=== PATIENT | female | born 1955 | race Caucasian/White ===

== ENCOUNTER 2019-06-10 08:58 | Day surgery (SDC) | payer MEDICARE ==
[~2019-06-10 08:58] MED LIST: Dextrose 5%-0.45% NaCl 1,000 ML IV SCH; Midazolam 1 MG/ML 2 ML SDV ONE; fentaNYL 100 MCG/2 ML SDV ONE
[2019-06-10] MEDS ORDERED: fentaNYL 100 MCG/2 ML SDV IV ONE ×3 (08:59→10:06)
[2019-06-10] MEDS ORDERED: Midazolam 1 MG/ML 2 ML SDV IV ONE ×3 (08:59→10:02)
--- NOTE | 2019-06-10 17:30 | OR ---
DATE: 06/10/2019 PREOPERATIVE DIAGNOSIS: Screening colonoscopy. POSTOPERATIVE DIAGNOSIS: Screening colonoscopy. PROCEDURE: Total colonoscopy. ANESTHESIA: Conscious sedation with IV Versed and fentanyl. SPECIMEN: None. OPERATIVE FINDINGS: Normal colonoscopy. RECOMMENDATION: Followup screening colonoscopy for polyps in 10 years. INDICATION FOR PROCEDURE: This 63-year-old female presents for screening colonoscopy. PROCEDURE IN DETAIL: After adequate preparation, a colonoscope was inserted into the rectum. This was easily passed all the way to the cecum. Confirmation of the cecum was made by visualization of the ileocecal valve and palpation in the right lower quadrant. There was quite a bit of liquid material still present in the colon, but this was mostly able to be suctioned clear to give an adequate exam. The patient has no polyps, masses, bleeding sites, or diverticula. Anal and rectal examinations are also normal. Air was suctioned from the colon and the scope removed. [facility] /[id number]
== END 2019-06-10 12:11 | disposition home or self-care (01) ==
LOC: DL.ENDO 08:58
PROVIDERS: ATTEND Surgery
DX: Z12.11 Encounter for screening for malignant neoplasm of colon (principal); Z88.0 Allergy status to penicillin; Z79.899 Other long term (current) drug therapy; Z85.72 Personal history of non-Hodgkin lymphomas
CPT/HCPCS: G0121; J2250; J3010; J7042

== ENCOUNTER 2021-09-18 09:08 | Inpatient (IN) | payer MEDICARE ==
[2021-09-18] MEDS: Sodium Chloride 0.9% 10 ML Syringe FLUSH PRN ×2 (09:27→15:29)
[2021-09-18] MEDS ORDERED: Albuterol/Ipratropium 3.0-0.5 MG/3 ML Neb Soln ONE (09:32)
--- NOTE | 2021-09-18 09:43 | EDM.PDOC ---
ED HPI GENERAL MEDICAL PROBLEM - General Chief Complaint: Chest Pain Stated Complaint: TROUBLE BREATHING / TASTE SMELL OK Time Seen by Provider: 09/18/21 09:30 Source of Information: Reports: Patient History Limitations: Reports: No Limitations - History of Present Illness INITIAL COMMENTS - FREE TEXT/NARRATIVE: 65 y/o F c/o sob cough, chest pressure, fever, and sweating since yesterday. Pt states her symptoms came on gradually and she has felt increasingly sob as the days have gone on. Hx of asthma and has used her inhaler yesterday with no relief. Has been taking OTC cough medicine with no relief. Has not had a productive cough. The chest pressure is center chest non radiating. No NVD. Denies thompson, vision prob, abd pn, pelvic pn, ext pain, drugs, etoh. Is a smoker. Previous NM ten plus years ago of the RCA. - Related Data Allergies Allergy/AdvReac Type Severity Reaction Status Date / Time Penicillins AdvReac Cannot Verified 09/18/21 09:13 Remember Home Meds: Home Meds Amitriptyline [Elavil] 10 mg PO BEDTIME PRN 04/28/19 [History] FLUoxetine [PROzac] 10 mg PO DAILY 04/28/19 [History] Losartan/Hydrochlorothiazide [Losartan-HCTZ 50-12.5 MG] 1 each PO DAILY 04/28/19 [History] Metoprolol Succinate [Toprol XL] 25 mg PO DAILY 04/28/19 [History] Cefpodoxime [Vantin] 200 mg PO BID #6 tablet 04/30/19 [Rx] Multivitamin [Multivitamins] 1 each PO DAILY 06/10/19 [History] atorvaSTATin [Lipitor] 10 mg PO BEDTIME 06/10/19 [History] Past Medical History - Past Health History Medical/Surgical History: Denies Medical/Surgical History HEENT History: Reports: Impaired Vision Cardiovascular History: Reports: Hypertension, Stents Other Cardiovascular History: STENT X4 Respiratory History: Reports: Other (See Below) Other Respiratory History: LYMPHOMA IN LUNG, RADIATION DONE FOR LUNG Gastrointestinal History: Reports: Colon Polyp, Other (See Below) Other Gastrointestinal History: HX OF LYMPHOMA IN STOMACH Genitourinary History: Reports: None 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: Musculoskeletal History: Reports: Arthritis Neurological History: Reports: None Psychiatric History: Reports: Depression Endocrine/Metabolic History: Reports: Obesity/BMI 30+ Hematologic History: Reports: None Immunologic History: Reports: None Oncologic (Cancer) History: Reports: Lymphoma Dermatologic History: Reports: Psoriasis - Infectious Disease History Infectious Disease History: Reports: Chicken Pox, Measles - Past Surgical History HEENT Surgical History: Reports: None Cardiovascular Surgical History: Reports: Other (See Below) Other Cardiovascular Surgeries/Procedures: stents GI Surgical History: Reports: Colonoscopy, Polypectomy Female Surgical History: Reports: None Endocrine Surgical History: Reports: None Musculoskeletal Surgical History: Reports: None Social & Family History - Family History Family Medical History: No Pertinent Family History - Tobacco Use Tobacco Use Status *Q: Current Every Day Tobacco User Years of Tobacco use: 50 Packs/Tins Daily: 0.3 Used Tobacco, but Quit: No Second Hand Smoke Exposure: No - Caffeine Use Caffeine Use: Reports: Coffee - Recreational Drug Use Recreational Drug Use: No ED ROS GENERAL - Review of Systems Review Of Systems: Comprehensive ROS is negative, except as noted in HPI. ED EXAM, GENERAL - Physical Exam Exam: See Below Exam Limited By: No Limitations General Appearance: Alert, Mild Distress Eye Exam: Bilateral Eye: PERRL Ears: Normal External Exam, Normal Canal, Hearing Grossly Normal, Normal TMs Nose: Normal Inspection, Normal Mucosa, No Blood Throat/Mouth: Normal Inspection, Normal Lips, Normal Teeth, Normal Gums, Normal Oropharynx, Normal Voice, No Airway Compromise Head: Atraumatic, Normocephalic Neck: Supple, Non-Tender Respiratory/Chest: Respiratory Distress, Other (diminished throughout with wheezes throughout) Cardiovascular: Normal Peripheral Pulses, Regular Rate, Rhythm, No Edema, No Gallop, No JVD, No Murmur, No Rub Peripheral Pulses: 2+: Radial (L), Radial (R) GI/Abdominal: Soft, Non-Tender (Female) Exam: Deferred Rectal (Female) Exam: Deferred Back Exam: Normal Inspection, Full Range of Motion Extremities: Normal Inspection, Normal Range of Motion, Non-Tender, Normal Capillary Refill, No Pedal Edema Neurological: Alert, Oriented, CN II-XII Intact, Normal Cognition, Normal Gait, Normal Reflexes, No Motor/Sensory Deficits Psychiatric: Normal Affect, Normal Mood Skin Exam: Warm, Dry, Intact #1 Interpretation EKG Date: 09/18/21 Time: 09:19 Rhythm: Other (sinus) [place]: Normal P-Wave: Present QRS: Normal ST-T: Normal QT: Normal EKG Interpretation Comments: Q waves inferior leads. Unchanged from previous EKG 2019 Course - Vital Signs Last Recorded V/S: Last Vital Signs Temp 98.2 F 09/18/21 09:24 Pulse 78 09/18/21 09:24 Resp 20 09/18/21 09:24 BP 151/103 H 09/18/21 09:24 Pulse Ox 89 L 09/18/21 09:24 - Orders/Labs/Meds Orders: Active Orders 24 hr Category Date Time Status Peripheral IV Care [RC] . DIRECTED Care 09/18/21 09:20 Active RT Aerosol Therapy [RC] ASDIRECTED Care 09/18/21 09:45 Active RT Aerosol Therapy [RC] ASDIRECTED Care 09/18/21 12:23 Active Sodium Chloride 0.9% [Saline Flush] Med 09/18/21 09:19 Active 10 ml FLUSH ASDIRECTED PRN Peripheral IV Insertion Adult [OM.PC] Routine Oth 09/18/21 09:19 Ordered Medication Orders Sodium Chloride (Sodium Chloride 0.9% 10 Ml Syringe) 10 ml FLUSH ASDIRECTED PRN PRN Reason: Keep Vein Open Last Admin: 09/18/21 09:27 Dose: 10 ml Documented by: ASPEN Labs: Laboratory Tests 09/18/21 09/18/21 09/18/21 Range/Units 09:20 09:25 10:05 WBC 7.4 (5.0-10.0) 10^3/uL RBC 4.66 (4.2-5.4) 10^6/uL Hgb 14.0 (12.0-16.0) g/dL Hct 42.0 (37.0-47.0) % MCV 90.1 (80-100) fL MCH 30.0 (27.0-34.0) pg MCHC 33.3 (33.0-35.0) g/dL Plt Count 331 (150-450) 10^3/uL Neut % (Auto) 63.6 (42.2-75.2) % Lymph % (Auto) 20.8 (20.5-50.1) % [place] % (Auto) 11.7 H (2-8) % Eos % (Auto) 3.1 H (1.0-3.0) % Baso % (Auto) 0.8 (0.0-1.0) % Sodium 142 (136-145) mmol/L Potassium 3.7 (3.5-5.1) mmol/L Chloride 103 (98-107) mmol/L Carbon Dioxide 29 (21-32) mmol/L Anion Gap 13.7 H (7-13) mEq/L BUN 14 (7-18) mg/dL Creatinine 0.74 (0.55-1.02) mg/dL Est Cr Clr Drug Dosing 61.02 mL/min Estimated GFR (MDRD) > 60 BUN/Creatinine Ratio 18.9 (No establ ref range) Glucose 157 H (70-99) mg/dL Calcium 8.8 (8.5-10.1) mg/dL Magnesium 2.1 (1.8-2.4) mg/dL Total Bilirubin 0.4 (0.2-1.0) mg/dL AST 31 (15-37) U/L ALT 40 (14-59) U/L Alkaline Phosphatase 143 H (46-116) U/L Troponin I High Sens 14 (<=51) pg/mL C-Reactive Protein < 0.2 (0.0-0.9) mg/dL B-Natriuretic Peptide 64 (0-100) pg/ml Total Protein 7.3 (6.4-8.2) g/dL Albumin 3.7 (3.4-5.0) g/dL Globulin 3.6 Albumin/Globulin Ratio 1.0 Influenza Type A RNA Negative (NEGATIVE) Influenza Type B RNA Negative (NEGATIVE) SARS-CoV-2 RNA ([place]) Negative (NEGATIVE) Meds: Medications Generic Name Dose Route Start Last Admin Trade Name Freq PRN Reason Stop Dose Admin Sodium Chloride 10 ml 09/18/21 09:19 09/18/21 09:27 Sodium Chloride 0.9% 10 Ml Syringe FLUSH 10 ml ASDIRECTED PRN Administration Keep Vein Open Discontinued Medications Generic Name Dose Route Start Last Admin Trade Name Freq PRN Reason Stop Dose Admin Albuterol 10 mg 09/18/21 09:44 09/18/21 09:55 Albuterol 0.083% 2.5 Mg/3 Ml Neb Soln NEB 09/18/21 09:45 10 mg ONETIME ONE Administration Albuterol Confirm 09/18/21 09:47 09/18/21 10:48 Albuterol 0.083% 2.5 Mg/3 Ml Neb Soln Administered 09/18/21 09:48 Not Given Dose 10 mg .ROUTE .STK-MED ONE Albuterol 10 mg 09/18/21 12:23 Albuterol 0.083% 2.5 Mg/3 Ml Neb Soln NEB 09/18/21 12:24 ONETIME ONE Albuterol/Ipratropium Confirm 09/18/21 09:32 09/18/21 09:36 Albuterol/Ipratropium 3.0-0.5 Mg/3 Ml Neb Soln Administered 09/18/21 09:33 6 ml Dose Administration 6 ml .ROUTE .STK-MED ONE Magnesium Sulfate 2 gm/ Premix 50 mls @ 25 mls/hr 09/18/21 10:14 09/18/21 10:21 IV 09/18/21 12:13 25 mls/hr ONETIME ONE Administration Methylprednisolone Sodium Succinate 125 mg 09/18/21 10:21 09/18/21 10:25 Methylprednisolone Sodium Succinate 125 Mg/2 Ml Sdv IVPUSH 09/18/21 10:22 125 mg ONETIME ONE Administration - Re-Assessments/Exams Free Text/Narrative Re-Assessment/Exam: 09/18/21 12:26 The pts o2 sats went down to 84% on RA with ambulation. All other results are negative but pts remains wheezy with decreased breath sounds. She is not normally on oxygen and was very winded after walking. I spoke with Dr. Spicer who agreed to admit the pt for inpatient treatment of her asthma exacerbation. Departure - Departure Time of Disposition: 12:29 (Dr. Spicer) Disposition: Admitted As Inpatient 64 Condition: Fair Clinical Impression: Asthma exacerbation Qualifiers: Asthma severity: moderate Asthma persistence: persistent Qualified Code(s): J45.41 - Moderate persistent asthma with (acute) exacerbation Forms: ED Department Discharge Sepsis Event Note (ED) - Evaluation Sepsis Screening Result: No Definite Risk - Focused Exam Vital Signs: Vital Signs Temp Pulse Resp BP Pulse Ox 09/18/21 09:24 98.2 F 78 20 151/103 H 89 L - My Orders Last 24 Hours: My Active Orders 09/18/21 09:19 Sodium Chloride 0.9% [Saline Flush] 10 ml FLUSH ASDIRECTED PRN Peripheral IV Insertion Adult [OM.PC] Routine 09/18/21 09:20 Peripheral IV Care [RC] . DIRECTED 09/18/21 09:45 RT Aerosol Therapy [RC] ASDIRECTED 09/18/21 12:23 RT Aerosol Therapy [RC] ASDIRECTED - Assessment/Plan Last 24 Hours: My Active Orders 09/18/21 09:19 Sodium Chloride 0.9% [Saline Flush] 10 ml FLUSH ASDIRECTED PRN Peripheral IV Insertion Adult [OM.PC] Routine 09/18/21 09:20 Peripheral IV Care [RC] . DIRECTED 09/18/21 09:45 RT Aerosol Therapy [RC] ASDIRECTED 09/18/21 12:23 RT Aerosol Therapy [RC] ASDIRECTED
[2021-09-18] MEDS ORDERED: Albuterol 0.083% 2.5 MG/3 ML Neb Soln NEB ONE ×2 (09:44→12:23)
[2021-09-18] MEDS ORDERED: Albuterol 0.083% 2.5 MG/3 ML Neb Soln ONE ×2 (09:47→12:26)
[2021-09-18 10:04] LABS: ANION GAP 13.7 mEq/L (7-13); CHLORIDE,CL 103 mmol/L (98-107); SODIUM,NA 142 mmol/L (136-145)
--- NOTE | 2021-09-18 10:04 | CR ---
PROCEDURE INFORMATION: Exam: XR Chest Exam date and time: 09/18/2021 9:32 AM Age: 65 years old Clinical indication: Cough and shortness of breath; Additional info: Cp, SOB, cough TECHNIQUE: Imaging protocol: XR of the chest. Views: 1 view. COMPARISON: CR Chest 2V 02/18/2021 10:36 AM FINDINGS: Tubes, catheters and devices: Port-A-Cath left chest wall with tip in the superior vena cava. Lungs: Unremarkable. No consolidation. Pleural spaces: Unremarkable. No pleural effusion. No pneumothorax. Heart/Mediastinum: Unremarkable. No cardiomegaly. Bones/joints: Advanced degenerative changes left glenohumeral joint. IMPRESSION: No acute cardiopulmonary findings.
[2021-09-18] MEDS ORDERED: Magnesium Sulfate/Water 2 GM in Premix Bag 1 BAG IV ONE (10:14)
[2021-09-18] MEDS ORDERED: methylPREDNISolone Sodium Succinate 125 MG/2 ML SDV IVPUSH ONE (10:21)
[2021-09-18 10:37] LABS: CORONAVIRUS COVID-19 NAA NEGATIVE (NEGATIVE)
[2021-09-18] MEDS ORDERED: 50% Dextrose in Water 50 ML Syringe IVPUSH PRN (14:23)
[2021-09-18] MEDS ORDERED: Albuterol/Ipratropium 3.0-0.5 MG/3 ML Neb Soln NEB PRN (14:24)
[2021-09-18] MEDS ORDERED: oxyCODONE 5 MG Tab PO PRN (14:47)
[2021-09-18] MEDS ORDERED: Docusate Sodium 100 MG Cap PO PRN (14:47)
[2021-09-18] MEDS ORDERED: Ondansetron 4 MG Tab.DIS PO PRN (14:47)
[2021-09-18] MEDS ORDERED: Acetaminophen 325 MG Tab PO PRN (14:47)
--- NOTE | 2021-09-18 14:52 | PCM.HP ---
H&P History of Present Illness - General Date of Service: 09/18/21 Admit Problem/Dx: Admission Diagnosis/Problem Admission Diagnosis/Problem Asthma with acute exacerbation Source of Information: Patient, Provider - History of Present Illness Initial Comments - Free Text/Narative: h/o cad, copd Presented with cough, subjective fever, no associated sputum. Symptoms started 2 days ago Has been progressively worse. Associated with sob. No improvement with inhalers and OTC cough meds No apparent sick exposure In er noted to have hypoxemia, wheezing Was treated with IV solumedrol, nebs - Related Data Allergies/Adverse Reactions: Allergies Allergy/AdvReac Type Severity Reaction Status Date / Time Penicillins AdvReac Cannot Verified 09/18/21 13:23 Remember Home Medications: Home Meds RX: Amitriptyline [Elavil] 10 mg PO BEDTIME PRN 04/28/19 [History] RX: Losartan/Hydrochlorothiazide [Losartan-HCTZ 50-12.5 MG] 1 each PO DAILY 04/28/19 [History] RX: Metoprolol Succinate [Toprol XL] 25 mg PO DAILY 04/28/19 [History] Multivitamin [Multivitamins] 1 each PO DAILY 06/10/19 [History] atorvaSTATin [Lipitor] 10 mg PO BEDTIME 06/10/19 [History] RX: Escitalopram Oxalate 20 mg PO BEDTIME 09/18/21 [History] metFORMIN [Glucophage XR] 250 mg PO BEDTIME 09/18/21 [History] Past Medical History - Past Health History Medical/Surgical History: Denies Medical/Surgical History HEENT History: Reports: Impaired Vision Cardiovascular History: Reports: Hypertension, Stents Other Cardiovascular History: STENT X4 20yrs ago. 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 Hematologic History: Reports: None Immunologic History: Reports: None Oncologic (Cancer) History: Reports: Lymphoma Dermatologic History: Reports: Psoriasis - Infectious Disease History Infectious Disease History: Reports: Chicken Pox - Past Surgical History HEENT Surgical History: Reports: None Cardiovascular Surgical History: Reports: Other (See Below) Other Cardiovascular Surgeries/Procedures: stents GI Surgical History: Reports: Colonoscopy, Polypectomy Female Surgical History: Reports: None Endocrine Surgical History: Reports: None Musculoskeletal Surgical History: Reports: None Social & Family History - Family History Family Medical History: No Pertinent Family History - Tobacco Use Tobacco Use Status *Q: Current Every Day Tobacco User Years of Tobacco use: 50 Packs/Tins Daily: 0.3 Used Tobacco, but Quit: No Second Hand Smoke Exposure: No - Caffeine Use Caffeine Use: Reports: Coffee - Recreational Drug Use Recreational Drug Use: No H&P Review of Systems - Review of Systems: Review Of Systems: See Below General: Reports: Fever (subjective), Chills, Malaise Pulmonary: Reports: Shortness of Breath, Cough, Sputum (minimal) Gastrointestinal: Denies: Abdominal Pain, Nausea Genitourinary: Denies: Dysuria Psychiatric: Denies: Confusion Neurological: Denies: Syncope Exam - Exam Exam: See Below - Vital Signs Vital Signs: Last Vital Signs Temp 98.2 F 09/18/21 09:24 Pulse 78 09/18/21 09:24 Resp 20 09/18/21 09:24 BP 151/103 H 09/18/21 09:24 Pulse Ox 89 L 09/18/21 09:24 Weight: 165 lb - Exam Quality Assessment: Supplemental Oxygen General: Alert, Oriented Neck: Supple Lungs: Normal Respiratory Effort, Decreased Breath Sounds, Wheezing Cardiovascular: Regular Rate, Regular Rhythm GI/Abdominal Exam: Normal Bowel Sounds, Soft, Non-Tender Extremities: No Pedal Edema Neuro Extensive - Mental Status: Alert, Oriented x3 - Patient Data Lab Results Last 24 hrs: Laboratory Results - last 24 hr 09/18/21 09/18/21 09/18/21 Range/Units 09:20 09:25 10:05 WBC 7.4 (5.0-10.0) 10^3/uL RBC 4.66 (4.2-5.4) 10^6/uL Hgb 14.0 (12.0-16.0) g/dL Hct 42.0 (37.0-47.0) % MCV 90.1 (80-100) fL MCH 30.0 (27.0-34.0) pg MCHC 33.3 (33.0-35.0) g/dL Plt Count 331 (150-450) 10^3/uL Neut % (Auto) 63.6 (42.2-75.2) % Lymph % (Auto) 20.8 (20.5-50.1) % [place] % (Auto) 11.7 H (2-8) % Eos % (Auto) 3.1 H (1.0-3.0) % Baso % (Auto) 0.8 (0.0-1.0) % Sodium 142 (136-145) mmol/L Potassium 3.7 (3.5-5.1) mmol/L Chloride 103 (98-107) mmol/L Carbon Dioxide 29 (21-32) mmol/L Anion Gap 13.7 H (7-13) mEq/L BUN 14 (7-18) mg/dL Creatinine 0.74 (0.55-1.02) mg/dL Est Cr Clr Drug Dosing 61.02 mL/min Estimated GFR (MDRD) > 60 BUN/Creatinine Ratio 18.9 (No establ ref range) Glucose 157 H (70-99) mg/dL Calcium 8.8 (8.5-10.1) mg/dL Magnesium 2.1 (1.8-2.4) mg/dL Total Bilirubin 0.4 (0.2-1.0) mg/dL AST 31 (15-37) U/L ALT 40 (14-59) U/L Alkaline Phosphatase 143 H (46-116) U/L Troponin I High Sens 14 (<=51) pg/mL C-Reactive Protein < 0.2 (0.0-0.9) mg/dL B-Natriuretic Peptide 64 (0-100) pg/ml Total Protein 7.3 (6.4-8.2) g/dL Albumin 3.7 (3.4-5.0) g/dL Globulin 3.6 Albumin/Globulin Ratio 1.0 Influenza Type A RNA Negative (NEGATIVE) Influenza Type B RNA Negative (NEGATIVE) SARS-CoV-2 RNA ([place]) Negative (NEGATIVE) Result Diagrams: 09/18/21 10:05 09/18/21 09:20 - Problem List (1) Acute bronchitis with COPD SNOMED Code(s): 214523586810903 ICD Code: J44.0 - CHR OBSTRUCTIVE PULMON DISEASE WITH (ACUTE) LOWER RESP INFCT; J20.9 - ACUTE BRONCHITIS, UNSPECIFIED Status: Acute Current Visit: Yes (2) COPD with acute exacerbation SNOMED Code(s): 874484680 ICD Code: J44.1 - CHRONIC OBSTRUCTIVE PULMONARY DISEASE W (ACUTE) EXACERBATION Status: Acute Current Visit: Yes (3) Acute hypoxemic respiratory failure SNOMED Code(s): 293076468 ICD Code: J96.01 - ACUTE RESPIRATORY FAILURE WITH HYPOXIA Status: Acute Current Visit: Yes (4) Diabetes SNOMED Code(s): 48993448 ICD Code: E11.9 - TYPE 2 DIABETES MELLITUS WITHOUT COMPLICATIONS Status: Acute Current Visit: Yes (5) CAD (coronary artery disease) SNOMED Code(s): 97948086 ICD Code: I25.10 - ATHSCL HEART DISEASE OF [place] CORONARY ARTERY W/O ANG PCTRS Status: Acute Current Visit: No (6) Depression SNOMED Code(s): 29361137 ICD Code: F32.9 - MAJOR DEPRESSIVE DISORDER, SINGLE EPISODE, UNSPECIFIED Status: Acute Current Visit: No (7) Hypertension SNOMED Code(s): 53854220 ICD Code: I10 - ESSENTIAL (PRIMARY) HYPERTENSION Status: Acute Current Visit: No Problem List Initiated/Reviewed/Updated: Yes Orders Last 24hrs: Active Orders 24 hr Category Date Time Status Admission Diagnosis [ADT] Stat ADT 09/18/21 12:29 Ordered Admission Status [Patient Status] [ADT] Routine ADT 09/18/21 12:29 Active Blood Glucose Check, Bedside [RC] WITHMEALSANDBED Care 09/18/21 14:23 Active Oxygen Therapy [RC] PRN Care 09/18/21 14:47 Ordered Peripheral IV Care [RC] . DIRECTED Care 09/18/21 09:20 Active RT Aerosol Therapy [RC] ASDIRECTED Care 09/18/21 09:45 Active RT Aerosol Therapy [RC] ASDIRECTED Care 09/18/21 12:23 Active RT Aerosol Therapy [RC] ASDIRECTED Care 09/18/21 14:26 Active Up With Assistance [RC] ASDIRECTED Care 09/18/21 14:47 Ordered VTE/DVT Education [RC] PER UNIT ROUTINE Care 09/18/21 14:47 Ordered Vital Signs [RC] Q4H Care 09/18/21 14:47 Ordered Consistent Carbohydrate Diet [DIET] Diet 09/18/21 Dinner Ordered BASIC METABOLIC PANEL,BMP [CHEM] AM Lab 09/19/21 05:11 Ordered BASIC METABOLIC PANEL,BMP [CHEM] AM Lab 09/20/21 05:11 Ordered BASIC METABOLIC PANEL,BMP [CHEM] AM Lab 09/21/21 05:11 Ordered BASIC METABOLIC PANEL,BMP [CHEM] AM Lab 09/22/21 05:11 Ordered CBC WITH AUTO DIFF [HEME] AM Lab 09/19/21 05:11 Ordered CBC WITH AUTO DIFF [HEME] AM Lab 09/20/21 05:11 Ordered CBC WITH AUTO DIFF [HEME] AM Lab 09/21/21 05:11 Ordered CBC WITH AUTO DIFF [HEME] AM Lab 09/22/21 05:11 Ordered CULTURE SPUTUM + SMEAR [RM] Routine Lab 09/18/21 14:22 Ordered MAGNESIUM [CHEM] AM Lab 09/19/21 05:11 Ordered PHOSPHORUS [CHEM] AM Lab 09/19/21 05:11 Ordered Acetaminophen [TylenoL] Med 09/18/21 14:47 Ordered 650 mg PO Q4H PRN Albuterol/Ipratropium [DuoNeb 3.0-0.5 MG/3 ML] Med 09/18/21 14:24 Active 3 ml NEB Q2H PRN Albuterol/Ipratropium [DuoNeb 3.0-0.5 MG/3 ML] Med 09/18/21 18:00 Active 3 ml NEB Q6HRRT Amitriptyline [Elavil] Med 09/18/21 14:43 Ordered 10 mg PO BEDTIME PRN Aspirin Med 09/18/21 21:00 Ordered 81 mg PO BEDTIME Azithromycin [Zithromax] 500 mg Med 09/18/21 14:30 Active Sodium Chloride 0.9% [Normal Saline AdvBag] 250 ml IV Q24H Budesonide [Pulmicort] Med 09/18/21 18:00 Active 0.5 mg NEB BIDRT Dextrose 50% in Water Med 09/18/21 14:23 Active 25 ml IVPUSH ASDIRECTED PRN Docusate Sodium [Colace] Med 09/18/21 14:47 Ordered 100 mg PO BID PRN Enoxaparin [Lovenox] Med 09/19/21 09:00 Ordered 40 mg SUBCUT DAILY Escitalopram [Lexapro] Med 09/18/21 21:00 Ordered 20 mg PO BEDTIME Hydrochlorothiazide/Losartan Med 09/19/21 09:00 Ordered 1 each PO DAILY Insulin Lispro [HumaLOG] Med 09/18/21 18:00 Active See Protocol SUBCUT WITHMEALSANDBED Metoprolol Succinate [Toprol XL] Med 09/19/21 09:00 Ordered 25 mg PO DAILY Multivitamin [Multivitamins] Med 09/19/21 09:00 Ordered 1 each PO DAILY Ondansetron [Zofran ODT] Med 09/18/21 14:47 Ordered 4 mg PO Q6H PRN Sodium Chloride 0.9% [Saline Flush] Med 09/18/21 09:19 Active 10 ml FLUSH ASDIRECTED PRN atorvaSTATin [Lipitor] Med 09/18/21 21:00 Ordered 10 mg PO BEDTIME methylPREDNISolone Sod Succ [Solu-MEDROL] Med 09/18/21 18:00 Active 40 mg IVPUSH Q8H oxyCODONE Med 09/18/21 14:47 Ordered 5 mg PO Q4H PRN Peripheral IV Insertion Adult [OM.PC] Routine Oth 09/18/21 09:19 Ordered Saline Lock Insert [OM.PC] Routine Oth 09/18/21 14:47 Ordered Resuscitation Status Routine Resus Stat 09/18/21 14:47 Ordered Medication Orders Acetaminophen (Acetaminophen 325 Mg Tab) 650 mg PO Q4H PRN PRN Reason: Pain (Mild 1-3)/fever Albuterol/Ipratropium (Albuterol/Ipratropium 3.0-0.5 Mg/3 Ml Neb Soln) 3 ml NEB Q2H PRN PRN Reason: sob Albuterol/Ipratropium (Albuterol/Ipratropium 3.0-0.5 Mg/3 Ml Neb Soln) 3 ml NEB Q6HRRT DAVID Amitriptyline HCl (Amitriptyline 10 Mg Tab) 10 mg PO BEDTIME PRN PRN Reason: Sleep Aspirin (Aspirin 81 Mg Tab.Chew) 81 mg PO BEDTIME DAVID Atorvastatin Calcium (Atorvastatin 10 Mg Tab) 10 mg PO BEDTIME DAVID Budesonide (Budesonide 0.5 Mg/2 Ml Neb Susp) 0.5 mg NEB BIDRT DAVID Dextrose/Water (50% Dextrose In Water 50 Ml Syringe) 25 ml IVPUSH ASDIRECTED PRN PRN Reason: Hypoglycemia BS<70 Enoxaparin Sodium (Enoxaparin 40 Mg/0.4 Ml Syringe) 40 mg SUBCUT DAILY DAVID Escitalopram Oxalate (Escitalopram 10 Mg Tab) 20 mg PO BEDTIME DAVID Azithromycin 500 mg/ Sodium (Chloride) 250 mls @ 250 mls/hr IV Q24H [facility] Insulin Human Lispro (Insulin Lispro 100 Units/Ml 3 Ml Vial) 0 unit SUBCUT WITHMEALSANDBED DAVID; Protocol Methylprednisolone Sodium Succinate (Methylprednisolone Sodium Succinate 40 Mg/1 Ml Sdv) 40 mg IVPUSH Q8H DAVID Metoprolol Succinate (Metoprolol Succinate 25 Mg Tab.Er) 25 mg PO DAILY DAVID Non-Formulary Medication (Hydrochlorothiazide/Losartan) 1 each PO DAILY DAVID Non-Formulary Medication (Multivitamin [Multivitamins]) 1 each PO DAILY DAVID Ondansetron HCl (Ondansetron 4 Mg Tab.Dis) 4 mg PO Q6H PRN PRN Reason: nausea, able to take PO Oxycodone HCl (Oxycodone 5 Mg Tab) 5 mg PO Q4H PRN PRN Reason: Pain (moderate 4-6) Sodium Chloride (Sodium Chloride 0.9% 10 Ml Syringe) 10 ml FLUSH ASDIRECTED PRN PRN Reason: Keep Vein Open Last Admin: 09/18/21 09:27 Dose: 10 ml Documented by: ASPEN Assessment/Plan Comment:: h/o cad, copd Presented with cough, subjective fever, no associated sputum. Symptoms started 2 days ago Has been progressively worse. Associated with sob. No improvement with inhalers and OTC cough meds No apparent sick exposure In er noted to have hypoxemia, wheezing Was treated with IV solumedrol, nebs COPD Acute exacerbation Treat with pulmicort, duoneb scheduled and prn Start solumedrol Possible acute bronchitis with cough, No pneumonia on cxr Send sputum for cx if possible Treat with azithromycin Hypoxemic respiratory failure Supplement oxygen as needed Taper oxygen as possible Cad, htn Start asa Cont Lipitor, metoporolol, losartan, hctz Dm Hold metformin Treat with supplemental insulin Use hypoglycemia protocol as needed Mood disorder Treat with Lexapro, amitriptyline dvt prophylaxis with lovenox
[2021-09-18] MEDS: Azithromycin 500 MG in Sodium Chloride 0.9% 250 ML IV SCH (15:28)
[2021-09-18] MEDS: Insulin Lispro 100 Units/ML 3 ML Vial SUBCUT SCH ×2 (17:13→21:07)
[2021-09-18] MEDS: methylPREDNISolone Sodium Succinate 40 MG/1 ML SDV IVPUSH SCH (17:13)
[2021-09-18] MEDS: Albuterol/Ipratropium 3.0-0.5 MG/3 ML Neb Soln NEB SCH (18:26)
[2021-09-18] MEDS: Budesonide 0.5 MG/2 ML Neb Susp NEB SCH (18:26)
[2021-09-18] MEDS: Aspirin 81 MG Tab.Chew PO SCH (21:06)
[2021-09-18] MEDS: Amitriptyline 10 MG Tab PO PRN (21:06)
[2021-09-18] MEDS: atorvaSTATin 10 MG Tab PO SCH (21:07)
[2021-09-18] MEDS: Escitalopram 10 MG Tab PO SCH (21:07)
[2021-09-19] MEDS: methylPREDNISolone Sodium Succinate 40 MG/1 ML SDV IVPUSH SCH ×3 (01:26→17:36)
[2021-09-19] MEDS: Albuterol/Ipratropium 3.0-0.5 MG/3 ML Neb Soln NEB SCH ×4 (01:26→18:25)
[2021-09-19 07:11] LABS: ANION GAP 16.3 mEq/L (7-13); CHLORIDE,CL 103 mmol/L (98-107); SODIUM,NA 143 mmol/L (136-145)
[2021-09-19] MEDS: Budesonide 0.5 MG/2 ML Neb Susp NEB SCH ×2 (09:00→18:24)
[2021-09-19] MEDS: Hydrochlorothiazide 25 MG Tab PO SCH (10:10)
[2021-09-19] MEDS: Losartan 50 MG Tab PO SCH (10:11)
[2021-09-19] MEDS: Multivitamin Tab PO SCH (10:11)
[2021-09-19] MEDS: Insulin Lispro 100 Units/ML 3 ML Vial SUBCUT SCH ×4 (10:24→20:40)
[2021-09-19] MEDS: Enoxaparin 40 MG/0.4 ML Syringe SUBCUT SCH (10:25)
[2021-09-19] MEDS: Metoprolol Succinate 25 MG Tab.ER PO SCH (10:26)
--- NOTE | 2021-09-19 12:05 | PCM.PN ---
- General Info Date of Service: 09/19/21 Admission Dx/Problem (Free Text): Admission Diagnosis/Problem Admission Diagnosis/Problem acute copd exacerbation Subjective Update: feeling much better sob is mild, no associated cp worse with activity minimal cough, no fever Functional Status: Reports: Pain Controlled - Review of Systems General: Denies: Fever Pulmonary: Reports: Shortness of Breath Cardiovascular: Denies: Chest Pain, Edema Gastrointestinal: Denies: Abdominal Pain Genitourinary: Denies: Dysuria - Patient Data Vitals - Most Recent: Last Vital Signs Temp 97.9 F 09/19/21 08:28 Pulse 93 09/19/21 10:26 Resp 20 09/19/21 08:28 BP 147/68 H 09/19/21 10:26 Pulse Ox 95 09/19/21 08:28 Weight - Most Recent: 165 lb I&O - Last 24 Hours: Intake & Output 09/18/21 09/19/21 09/19/21 22:59 06:59 14:59 Intake Total 500 250 Balance 500 250 Lab Results Last 24 Hours: Laboratory Results - last 24 hr 09/18/21 09/18/21 09/19/21 Range/Units 17:03 20:54 06:45 WBC 26.1 H* (5.0-10.0) 10^3/uL RBC 4.58 (4.2-5.4) 10^6/uL Hgb 13.7 (12.0-16.0) g/dL Hct 40.9 (37.0-47.0) % MCV 89.3 (80-100) fL MCH 29.9 (27.0-34.0) pg MCHC 33.5 (33.0-35.0) g/dL Plt Count 344 (150-450) 10^3/uL Neut % (Auto) 90.4 H (42.2-75.2) % Lymph % (Auto) 6.0 L (20.5-50.1) % Hans[place] % (Auto) 3.6 (2-8) % Eos % (Auto) 0.0 L (1.0-3.0) % Baso % (Auto) 0.0 (0.0-1.0) % Add Manual Diff Yes Neutrophils % (Manual) 95 H (42-75) % Lymphocytes % (Manual) 3 L (20-50) % Monocytes % (Manual) 2 (2-8) % Sodium (136-145) mmol/L Potassium (3.5-5.1) mmol/L Chloride (98-107) mmol/L Carbon Dioxide (21-32) mmol/L Anion Gap (7-13) mEq/L BUN (7-18) mg/dL Creatinine (0.55-1.02) mg/dL Est Cr Clr Drug Dosing mL/min Estimated GFR (MDRD) Glucose (70-99) mg/dL POC Glucose 249 H 249 H (70-99) mg/dL Calcium (8.5-10.1) mg/dL Phosphorus (2.6-4.7) mg/dL Magnesium (1.8-2.4) mg/dL 09/19/21 09/19/21 09/19/21 Range/Units 06:45 07:59 11:49 WBC (5.0-10.0) 10^3/uL RBC (4.2-5.4) 10^6/uL Hgb (12.0-16.0) g/dL Hct (37.0-47.0) % MCV (80-100) fL MCH (27.0-34.0) pg MCHC (33.0-35.0) g/dL Plt Count (150-450) 10^3/uL Neut % (Auto) (42.2-75.2) % Lymph % (Auto) (20.5-50.1) % Hanson % (Auto) (2-8) % Eos % (Auto) (1.0-3.0) % Baso % (Auto) (0.0-1.0) % Add Manual Diff Neutrophils % (Manual) (42-75) % Lymphocytes % (Manual) (20-50) % Monocytes % (Manual) (2-8) % Sodium 143 (136-145) mmol/L Potassium 3.3 L (3.5-5.1) mmol/L Chloride 103 (98-107) mmol/L Carbon Dioxide 27 (21-32) mmol/L Anion Gap 16.3 H (7-13) mEq/L BUN 19 H (7-18) mg/dL Creatinine 0.88 (0.55-1.02) mg/dL Est Cr Clr Drug Dosing 49.06 mL/min Estimated GFR (MDRD) > 60 Glucose 181 H (70-99) mg/dL POC Glucose 175 H 242 H (70-99) mg/dL Calcium 8.7 (8.5-10.1) mg/dL Phosphorus 3.5 (2.6-4.7) mg/dL Magnesium 2.2 (1.8-2.4) mg/dL Med Orders - Current: Current Medications Acetaminophen (Acetaminophen 325 Mg Tab) 650 mg PO Q4H PRN PRN Reason: Pain (Mild 1-3)/fever Albuterol/Ipratropium (Albuterol/Ipratropium 3.0-0.5 Mg/3 Ml Neb Soln) 3 ml NEB Q2H PRN PRN Reason: sob Albuterol/Ipratropium (Albuterol/Ipratropium 3.0-0.5 Mg/3 Ml Neb Soln) 3 ml NEB Q6HRRT [facility] Last Admin: 09/19/21 09:00 Dose: 3 ml Documented by: Amitriptyline HCl (Amitriptyline 10 Mg Tab) 10 mg PO BEDTIME PRN PRN Reason: Sleep Last Admin: 09/18/21 21:06 Dose: 10 mg Documented by: Aspirin (Aspirin 81 Mg Tab.Chew) 81 mg PO BEDTIME [facility] Last Admin: 09/18/21 21:06 Dose: 81 mg Documented by: Atorvastatin Calcium (Atorvastatin 10 Mg Tab) 10 mg PO BEDTIME [facility] Last Admin: 09/18/21 21:07 Dose: 10 mg Documented by: Budesonide (Budesonide 0.5 Mg/2 Ml Neb Susp) 0.5 mg NEB BIDRT [facility] Last Admin: 09/19/21 09:00 Dose: 0.5 mg Documented by: Dextrose/Water (50% Dextrose In Water 50 Ml Syringe) 25 ml IVPUSH ASDIRECTED PRN PRN Reason: Hypoglycemia BS<70 Docusate Sodium (Docusate Sodium 100 Mg Cap) 100 mg PO BID PRN PRN Reason: Constipation Enoxaparin Sodium (Enoxaparin 40 Mg/0.4 Ml Syringe) 40 mg SUBCUT DAILY [facility] Last Admin: 09/19/21 10:25 Dose: 40 mg Documented by: Escitalopram Oxalate (Escitalopram 10 Mg Tab) 20 mg PO BEDTIME [facility]ID Last Admin: 09/18/21 21:07 Dose: 20 mg Documented by: Hydrochlorothiazide (Hydrochlorothiazide 25 Mg Tab) 12.5 mg PO DAILY [facility] Last Admin: 09/19/21 10:10 Dose: 12.5 mg Documented by: Azithromycin 500 mg/ Sodium (Chloride) 250 mls @ 250 mls/hr IV Q24H [facility] Last Infusion: 09/18/21 17:14 Dose: Infused Documented by: Insulin Human Lispro (Insulin Lispro 100 Units/Ml 3 Ml Vial) 0 unit SUBCUT WITHMEALSANDBED [facility]; Protocol Last Admin: 09/19/21 10:24 Dose: 2 units Documented by: Losartan Potassium (Losartan 50 Mg Tab) 50 mg PO DAILY [facility] Last Admin: 09/19/21 10:11 Dose: 50 mg Documented by: Methylprednisolone Sodium Succinate (Methylprednisolone Sodium Succinate 40 Mg/1 Ml Sdv) 40 mg IVPUSH Q8H [facility] Last Admin: 09/19/21 10:00 Dose: 40 mg Documented by: Metoprolol Succinate (Metoprolol Succinate 25 Mg Tab.Er) 25 mg PO DAILY [facility] Last Admin: 09/19/21 10:26 Dose: 25 mg Documented by: Multivitamins/Minerals/Vitamin C (Multivitamin Tab) 1 tab PO DAILY [facility] Last Admin: 09/19/21 10:11 Dose: 1 tab Documented by: Ondansetron HCl (Ondansetron 4 Mg Tab.Dis) 4 mg PO Q6H PRN PRN Reason: nausea, able to take PO Oxycodone HCl (Oxycodone 5 Mg Tab) 5 mg PO Q4H PRN PRN Reason: Pain (moderate 4-6) Potassium Chloride (Potassium Chloride 10 Meq Tab.Er) 40 meq PO TIDMEALS [facility] Stop: 09/19/21 17:01 Sodium Chloride (Sodium Chloride 0.9% 10 Ml Syringe) 10 ml FLUSH ASDIRECTED PRN PRN Reason: Keep Vein Open Last Admin: 09/18/21 15:29 Dose: 10 ml Documented by: Discontinued Medications Albuterol (Albuterol 0.083% 2.5 Mg/3 Ml Neb Soln) 10 mg NEB ONETIME ONE Stop: 09/18/21 09:45 Last Admin: 09/18/21 09:55 Dose: 10 mg Documented by: Albuterol (Albuterol 0.083% 2.5 Mg/3 Ml Neb Soln) Confirm Administered Dose 10 mg .ROUTE .STK-MED ONE Stop: 09/18/21 09:48 Last Admin: 09/18/21 10:48 Dose: Not Given Documented by: Albuterol (Albuterol 0.083% 2.5 Mg/3 Ml Neb Soln) 10 mg NEB ONETIME ONE Stop: 09/18/21 12:24 Last Admin: 09/18/21 12:32 Dose: Not Given Documented by: Albuterol (Albuterol 0.083% 2.5 Mg/3 Ml Neb Soln) Confirm Administered Dose 10 mg .ROUTE .STK-MED ONE Stop: 09/18/21 12:27 Last Admin: 09/18/21 12:32 Dose: 10 mg Documented by: Albuterol/Ipratropium (Albuterol/Ipratropium 3.0-0.5 Mg/3 Ml Neb Soln) Confirm Administered Dose 6 ml .ROUTE .STK-MED ONE Stop: 09/18/21 09:33 Last Admin: 09/18/21 09:36 Dose: 6 ml Documented by: Magnesium Sulfate 2 gm/ Premix 50 mls @ 25 mls/hr IV ONETIME ONE Stop: 09/18/21 12:13 Last Admin: 09/18/21 10:21 Dose: 25 mls/hr Documented by: Methylprednisolone Sodium Succinate (Methylprednisolone Sodium Succinate 125 Mg/2 Ml Sdv) 125 mg IVPUSH ONETIME ONE Stop: 09/18/21 10:22 Last Admin: 09/18/21 10:25 Dose: 125 mg Documented by: - Exam Quality Assessment: Supplemental Oxygen General: Alert, Oriented Neck: Supple Lungs: Normal Respiratory Effort, Wheezing Cardiovascular: Regular Rate, Regular Rhythm GI/Abdominal Exam: Normal Bowel Sounds, Soft, Non-Tender Extremities: No Pedal Edema Skin: Warm, Dry Neurological: No New Focal Deficit Psy/Mental Status: Alert, Normal Affect, Normal Mood - Patient Data Lab Results Last 24 hrs: Laboratory Results - last 24 hr 09/18/21 09/18/21 09/19/21 Range/Units 17:03 20:54 06:45 WBC 26.1 H* (5.0-10.0) 10^3/uL RBC 4.58 (4.2-5.4) 10^6/uL Hgb 13.7 (12.0-16.0) g/dL Hct 40.9 (37.0-47.0) % MCV 89.3 (80-100) fL MCH 29.9 (27.0-34.0) pg MCHC 33.5 (33.0-35.0) g/dL Plt Count 344 (150-450) 10^3/uL Neut % (Auto) 90.4 H (42.2-75.2) % Lymph % (Auto) 6.0 L (20.5-50.1) % Hanson % (Auto) 3.6 (2-8) % Eos % (Auto) 0.0 L (1.0-3.0) % Baso % (Auto) 0.0 (0.0-1.0) % Add Manual Diff Yes Neutrophils % (Manual) 95 H (42-75) % Lymphocytes % (Manual) 3 L (20-50) % Monocytes % (Manual) 2 (2-8) % Sodium (136-145) mmol/L Potassium (3.5-5.1) mmol/L Chloride (98-107) mmol/L Carbon Dioxide (21-32) mmol/L Anion Gap (7-13) mEq/L BUN (7-18) mg/dL Creatinine (0.55-1.02) mg/dL Est Cr Clr Drug Dosing mL/min Estimated GFR (MDRD) Glucose (70-99) mg/dL POC Glucose 249 H 249 H (70-99) mg/dL Calcium (8.5-10.1) mg/dL Phosphorus (2.6-4.7) mg/dL Magnesium (1.8-2.4) mg/dL 09/19/21 09/19/21 09/19/21 Range/Units 06:45 07:59 11:49 WBC (5.0-10.0) 10^3/uL RBC (4.2-5.4) 10^6/uL Hgb (12.0-16.0) g/dL Hct (37.0-47.0) % MCV (80-100) fL MCH (27.0-34.0) pg MCHC (33.0-35.0) g/dL Plt Count (150-450) 10^3/uL Neut % (Auto) (42.2-75.2) % Lymph % (Auto) (20.5-50.1) % Hanson % (Auto) (2-8) % Eos % (Auto) (1.0-3.0) % Baso % (Auto) (0.0-1.0) % Add Manual Diff Neutrophils % (Manual) (42-75) % Lymphocytes % (Manual) (20-50) % Monocytes % (Manual) (2-8) % Sodium 143 (136-145) mmol/L Potassium 3.3 L (3.5-5.1) mmol/L Chloride 103 (98-107) mmol/L Carbon Dioxide 27 (21-32) mmol/L Anion Gap 16.3 H (7-13) mEq/L BUN 19 H (7-18) mg/dL Creatinine 0.88 (0.55-1.02) mg/dL Est Cr Clr Drug Dosing 49.06 mL/min Estimated GFR (MDRD) > 60 Glucose 181 H (70-99) mg/dL POC Glucose 175 H 242 H (70-99) mg/dL Calcium 8.7 (8.5-10.1) mg/dL Phosphorus 3.5 (2.6-4.7) mg/dL Magnesium 2.2 (1.8-2.4) mg/dL Result Diagrams: 09/19/21 06:45 09/19/21 06:45 Sepsis Event Note - Evaluation Sepsis Screening Result: No Definite Risk - Focused Exam Vital Signs: Vital Signs Temp Pulse Pulse Pulse Resp BP BP 09/19/21 10:26 93 147/68 H 09/19/21 10:11 147/68 H 09/19/21 09:00 93 09/19/21 08:28 97.9 F 87 20 147/68 H Pulse Ox 09/19/21 10:26 09/19/21 10:11 09/19/21 09:00 09/19/21 08:28 95 - Problem List & Annotations (1) Acute bronchitis with COPD SNOMED Code(s): 985116049089327 Code(s): J44.0 - CHR OBSTRUCTIVE PULMON DISEASE WITH (ACUTE) LOWER RESP INFCT; J20.9 - ACUTE BRONCHITIS, UNSPECIFIED Status: Acute Current Visit: Yes (2) COPD with acute exacerbation SNOMED Code(s): 549362297 Code(s): J44.1 - CHRONIC OBSTRUCTIVE PULMONARY DISEASE W (ACUTE) EXACERBATION Status: Acute Current Visit: Yes (3) Acute hypoxemic respiratory failure SNOMED Code(s): 152928192 Code(s): J96.01 - ACUTE RESPIRATORY FAILURE WITH HYPOXIA Status: Acute Current Visit: Yes (4) Diabetes SNOMED Code(s): 03242780 Code(s): E11.9 - TYPE 2 DIABETES MELLITUS WITHOUT COMPLICATIONS Status: Acute Current Visit: Yes (5) CAD (coronary artery disease) SNOMED Code(s): 15153354 Code(s): I25.10 - ATHSCL HEART DISEASE OF [place] CORONARY ARTERY W/O ANG PCTRS Status: Acute Current Visit: No (6) Depression SNOMED Code(s): 14159364 Code(s): F32.9 - MAJOR DEPRESSIVE DISORDER, SINGLE EPISODE, UNSPECIFIED Status: Acute Current Visit: No (7) Hypertension SNOMED Code(s): 55975838 Code(s): I10 - ESSENTIAL (PRIMARY) HYPERTENSION Status: Acute Current Vis it: No - Problem List Review Problem List Initiated/Reviewed/Updated: Yes - My Orders Last 24 Hours: My Active Orders 09/18/21 14:22 CULTURE SPUTUM + SMEAR [RM] Routine 09/18/21 14:23 Blood Glucose Check, Bedside [RC] WITHMEALSANDBED Dextrose 50% in Water 25 ml IVPUSH ASDIRECTED PRN 09/18/21 14:24 Albuterol/Ipratropium [DuoNeb 3.0-0.5 MG/3 ML] 3 ml NEB Q2H PRN 09/18/21 14:26 RT Aerosol Therapy [RC] ASDIRECTED 09/18/21 14:30 Azithromycin [Zithromax] 500 mg Sodium Chloride 0.9% [Normal Saline AdvBag] 250 ml IV Q24H 09/18/21 14:43 Amitriptyline [Elavil] 10 mg PO BEDTIME PRN 09/18/21 14:47 Oxygen Therapy [RC] PRN Up With Assistance [RC] VTE/DVT Education [RC] , Vital Signs [RC] 00,04,08,12,16,20 Acetaminophen [TylenoL] 650 mg PO Q4H PRN Docusate Sodium [Colace] 100 mg PO BID PRN Ondansetron [Zofran ODT] 4 mg PO Q6H PRN oxyCODONE 5 mg PO Q4H PRN Saline Lock Insert [OM.PC] Routine Resuscitation Status Routine 09/18/21 Dinner Consistent Carbohydrate Diet [DIET] 09/18/21 18:00 Albuterol/Ipratropium [DuoNeb 3.0-0.5 MG/3 ML] 3 ml NEB Q6HRRT Budesonide [Pulmicort] 0.5 mg NEB BIDRT Insulin Lispro [HumaLOG] See Protocol SUBCUT WITHMEALSANDBED methylPREDNISolone Sod Succ [Solu-MEDROL] 40 mg IVPUSH Q8H 09/18/21 21:00 Aspirin 81 mg PO BEDTIME Escitalopram [Lexapro] 20 mg PO BEDTIME atorvaSTATin [Lipitor] 10 mg PO BEDTIME 09/19/21 09:00 Enoxaparin [Lovenox] 40 mg SUBCUT DAILY Losartan [Cozaar] 50 mg PO DAILY Metoprolol Succinate [Toprol XL] 25 mg PO DAILY Multivitamins [Tab-A-Krupa] 1 tab PO DAILY hydroCHLOROthiazide 12.5 mg PO DAILY 09/19/21 12:00 Potassium Chloride [Klor-Con 10] 40 meq PO TIDMEALS 09/20/21 05:11 BASIC METABOLIC PANEL,BMP [CHEM] AM CBC WITH AUTO DIFF [HEME] AM 09/21/21 05:11 BASIC METABOLIC PANEL,BMP [CHEM] AM CBC WITH AUTO DIFF [HEME] AM 09/22/21 05:11 BASIC METABOLIC PANEL,BMP [CHEM] AM CBC WITH AUTO DIFF [HEME] AM - Plan Plan:: h/o cad, copd Presented with cough, subjective fever, no associated sputum. Symptoms started 2 days prior to admission Has been progressively worse. Associated with sob. No improvement with inhalers and OTC cough meds No apparent sick exposure In er noted to have hypoxemia, wheezing Was treated with IV solumedrol, nebs COPD Acute exacerbation appears improving Treat with pulmicort, duoneb scheduled and prn cont solumedrol Possible acute bronchitis with cough, No pneumonia on cxr Send sputum for cx if possible Treat with azithromycin leukocytosis is likely due to steroids Hypoxemic respiratory failure Supplement oxygen as needed still hypoxemic with activity Taper oxygen as possible Cad, htn cont asa Cont Lipitor, metoporolol, losartan, hctz Dm Hold metformin Treat with supplemental insulin Use hypoglycemia protocol as needed Mood disorder Treat with Lexapro, amitriptyline dvt prophylaxis with lovenox
[2021-09-19] MEDS: Potassium Chloride 10 MEQ Tab.ER PO SCH ×2 (13:47→17:34)
[2021-09-19] MEDS ORDERED: Azithromycin 500 MG in Sodium Chloride 0.9% 250 ML IV SCH (15:00)
[2021-09-19] MEDS: Azithromycin 500 MG in Sodium Chloride 0.9% 250 ML IV SCH (16:35)
[2021-09-19] MEDS: Aspirin 81 MG Tab.Chew PO SCH (20:39)
[2021-09-19] MEDS: Escitalopram 10 MG Tab PO SCH (20:39)
[2021-09-19] MEDS: atorvaSTATin 10 MG Tab PO SCH (20:40)
[2021-09-19] MEDS: Amitriptyline 10 MG Tab PO PRN (20:41)
[2021-09-20] MEDS: methylPREDNISolone Sodium Succinate 40 MG/1 ML SDV IVPUSH SCH ×2 (01:05→09:35)
[2021-09-20] MEDS: Albuterol/Ipratropium 3.0-0.5 MG/3 ML Neb Soln NEB SCH ×2 (01:05→10:01)
[2021-09-20 07:23] LABS: ANION GAP 14.2 mEq/L (7-13); CHLORIDE,CL 106 mmol/L (98-107); SODIUM,NA 145 mmol/L (136-145)
--- NOTE | 2021-09-20 09:20 | PCM.DCSUM1 ---
Discharge Summary - Hospital Course Free Text/Narrative:: h/o cad, copd Presented with cough, subjective fever, no associated sputum. Symptoms started 2 days prior to admission Has been progressively worse. Associated with sob. No improvement with inhalers and OTC cough meds No apparent sick exposure In er noted to have hypoxemia, wheezing Was treated with IV solumedrol, nebs COPD Acute exacerbation much improved Treated with pulmicort, duoneb scheduled and prn, solumedrol taper steroids cont nebs at home Possible acute bronchitis with cough, No pneumonia on cxr Treat with azithromycin leukocytosis is likely due to steroids Hypoxemic respiratory failure resolved Cad, htn cont asa Cont Lipitor, metoporolol, losartan, hctz Dm resume metformin after discharge Mood disorder Treat with Lexapro, amitriptyline Diagnosis: Stroke: No - Discharge Data Discharge Date: 09/20/21 Discharge Disposition: Home, Self-Care 01 Condition: Good - Referral to Home Health Primary Care Physician: PCP None - Discharge Diagnosis/Problem(s) (1) Acute bronchitis with COPD SNOMED Code(s): 082324902551630 ICD Code: J44.0 - CHR OBSTRUCTIVE PULMON DISEASE WITH (ACUTE) LOWER RESP INFCT; J20.9 - ACUTE BRONCHITIS, UNSPECIFIED Status: Acute Current Visit: Yes (2) COPD with acute exacerbation SNOMED Code(s): 712085675 ICD Code: J44.1 - CHRONIC OBSTRUCTIVE PULMONARY DISEASE W (ACUTE) EXACERBATION Status: Acute Current Visit: Yes (3) Acute hypoxemic respiratory failure SNOMED Code(s): 044203339 ICD Code: J96.01 - ACUTE RESPIRATORY FAILURE WITH HYPOXIA Status: Acute Current Visit: Yes (4) Diabetes SNOMED Code(s): 73527040 ICD Code: E11.9 - TYPE 2 DIABETES MELLITUS WITHOUT COMPLICATIONS Status: Acute Current Visit: Yes (5) CAD (coronary artery disease) SNOMED Code(s): 81072283 ICD Code: I25.10 - ATHSCL HEART DISEASE OF [place] CORONARY ARTERY W/O ANG PCTRS Status: Acute Current Visit: No (6) Depression SNOMED Code(s): 09938152 ICD Code: F32.9 - MAJOR DEPRESSIVE DISORDER, SINGLE EPISODE, UNSPECIFIED Status: Acute Current Visit: No (7) Hypertension SNOMED Code(s): 44400047 ICD Code: I10 - ESSENTIAL (PRIMARY) HYPERTENSION Status: Acute Current Visit: No - Patient Instructions Diet: Heart Healthy Diet Activity: As Tolerated - Discharge Plan *PRESCRIPTION DRUG MONITORING PROGRAM REVIEWED*: Not Applicable *COPY OF PRESCRIPTION DRUG MONITORING REPORT IN PATIENT DESTINEY: Not Applicable Prescriptions/Med Rec: Aspirin 81 mg PO BEDTIME #30 tab.chew predniSONE [Prednisone] 10 mg PO DAILY #20 tablet Budesonide [Pulmicort] 0.5 mg NEB BIDRT #60 neb Azithromycin [Zithromax] 250 mg PO DAILY #3 tablet Home Medications: Home Meds Amitriptyline [Elavil] 10 mg PO BEDTIME PRN 04/28/19 [History] Losartan/Hydrochlorothiazide [Losartan-HCTZ 50-12.5 MG] 1 each PO DAILY 04/28/19 [History] Metoprolol Succinate [Toprol XL] 25 mg PO DAILY 04/28/19 [History] Multivitamin [Multivitamins] 1 each PO DAILY 06/10/19 [History] atorvaSTATin [Lipitor] 10 mg PO BEDTIME 06/10/19 [History] Escitalopram Oxalate 20 mg PO BEDTIME 09/18/21 [History] metFORMIN [Glucophage XR] 250 mg PO BEDTIME 09/18/21 [History] Albuterol/Ipratropium [DuoNeb 3.0-0.5 MG/3 ML] 3 ml NEB Q2H PRN neb 09/20/21 [Rx] Albuterol/Ipratropium [DuoNeb 3.0-0.5 MG/3 ML] 3 ml NEB Q6HRRT neb 09/20/21 [Rx] Aspirin 81 mg PO BEDTIME #30 tab.chew 09/20/21 [Rx] Azithromycin [Zithromax] 250 mg PO DAILY #3 tablet 09/20/21 [Rx] Budesonide [Pulmicort] 0.5 mg NEB BIDRT #60 neb 09/20/21 [Rx] predniSONE [Prednisone] 10 mg PO DAILY #20 tablet 09/20/21 [Rx] Oxygen Therapy Mode: Room Air Forms: ED Department Discharge Referrals: Valerie Boone, PHARMACY TECH [Nurse Practitioner] - - Discharge Summary/Plan Comment DC Time >30 min.: No Total # of Minutes for Discharge Time: 20 min - General Info Date of Service: 09/20/21 Admission Dx/Problem (Free Text: Admission Diagnosis/Problem Admission Diagnosis/Problem acute copd exacerbation Functional Status: Reports: Tolerating Diet, Ambulating - Review of Systems General: Denies: Fever, Weakness Pulmonary: Reports: Wheezing (mild). Denies: Shortness of Breath, Sputum Cardiovascular: Denies: Chest Pain, Edema Gastrointestinal: Denies: Abdominal Pain Neurological: Denies: Confusion - Patient Data Vitals - Most Recent: Last Vital Signs Temp 98.4 F 09/20/21 07:57 Pulse 92 09/20/21 07:57 Resp 20 09/20/21 07:57 BP 171/85 H 09/20/21 07:57 Pulse Ox 96 09/20/21 07:57 Weight - Most Recent: 168 lb I&O - Last 24 hours: Intake & Output 09/19/21 09/20/21 09/20/21 22:59 06:59 14:59 Intake Total 950 200 Balance 950 200 Lab Results - Last 24 hrs: Laboratory Results - last 24 hr 09/19/21 09/19/21 09/19/21 Range/Units 11:49 16:27 19:26 WBC (5.0-10.0) 10^3/uL RBC (4.2-5.4) 10^6/uL Hgb (12.0-16.0) g/dL Hct (37.0-47.0) % MCV (80-100) fL MCH (27.0-34.0) pg MCHC (33.0-35.0) g/dL Plt Count (150-450) 10^3/uL Neut % (Auto) (42.2-75.2) % Lymph % (Auto) (20.5-50.1) % [place] % (Auto) (2-8) % Eos % (Auto) (1.0-3.0) % Baso % (Auto) (0.0-1.0) % Sodium (136-145) mmol/L Potassium (3.5-5.1) mmol/L Chloride (98-107) mmol/L Carbon Dioxide (21-32) mmol/L Anion Gap (7-13) mEq/L BUN (7-18) mg/dL Creatinine (0.55-1.02) mg/dL Est Cr Clr Drug Dosing mL/min Estimated GFR (MDRD) Glucose (70-99) mg/dL POC Glucose 242 H 168 H 185 H (70-99) mg/dL Calcium (8.5-10.1) mg/dL 09/19/21 09/20/21 09/20/21 Range/Units 21:42 06:15 06:15 WBC 25.6 H* (5.0-10.0) 10^3/uL RBC 4.31 (4.2-5.4) 10^6/uL Hgb 13.1 (12.0-16.0) g/dL Hct 38.8 (37.0-47.0) % MCV 90.0 (80-100) fL MCH 30.4 (27.0-34.0) pg MCHC 33.8 (33.0-35.0) g/dL Plt Count 351 (150-450) 10^3/uL Neut % (Auto) 91.0 H (42.2-75.2) % Lymph % (Auto) 5.3 L (20.5-50.1) % [place] % (Auto) 3.7 (2-8) % Eos % (Auto) 0.0 L (1.0-3.0) % Baso % (Auto) 0.0 (0.0-1.0) % Sodium 145 (136-145) mmol/L Potassium 4.2 (3.5-5.1) mmol/L Chloride 106 (98-107) mmol/L Carbon Dioxide 29 (21-32) mmol/L Anion Gap 14.2 H (7-13) mEq/L BUN 24 H (7-18) mg/dL Creatinine 0.87 (0.55-1.02) mg/dL Est Cr Clr Drug Dosing 49.63 mL/min Estimated GFR (MDRD) > 60 Glucose 175 H (70-99) mg/dL POC Glucose 215 H (70-99) mg/dL Calcium 8.4 L (8.5-10.1) mg/dL 09/20/21 Range/Units 07:43 WBC (5.0-10.0) 10^3/uL RBC (4.2-5.4) 10^6/uL Hgb (12.0-16.0) g/dL Hct (37.0-47.0) % MCV (80-100) fL MCH (27.0-34.0) pg MCHC (33.0-35.0) g/dL Plt Count (150-450) 10^3/uL Neut % (Auto) (42.2-75.2) % Lymph % (Auto) (20.5-50.1) % [place] % (Auto) (2-8) % Eos % (Auto) (1.0-3.0) % Baso % (Auto) (0.0-1.0) % Sodium (136-145) mmol/L Potassium (3.5-5.1) mmol/L Chloride (98-107) mmol/L Carbon Dioxide (21-32) mmol/L Anion Gap (7-13) mEq/L BUN (7-18) mg/dL Creatinine (0.55-1.02) mg/dL Est Cr Clr Drug Dosing mL/min Estimated GFR (MDRD) Glucose (70-99) mg/dL POC Glucose 159 H (70-99) mg/dL Calcium (8.5-10.1) mg/dL Med Orders - Current: Current Medications Acetaminophen (Acetaminophen 325 Mg Tab) 650 mg PO Q4H PRN PRN Reason: Pain (Mild 1-3)/fever Albuterol/Ipratropium (Albuterol/Ipratropium 3.0-0.5 Mg/3 Ml Neb Soln) 3 ml NEB Q2H PRN PRN Reason: sob Albuterol/Ipratropium (Albuterol/Ipratropium 3.0-0.5 Mg/3 Ml Neb Soln) 3 ml NEB Q6HRRT DAVID Last Admin: 09/20/21 01:05 Dose: 3 ml Documented by: Amitriptyline HCl (Amitriptyline 10 Mg Tab) 10 mg PO BEDTIME PRN PRN Reason: Sleep Last Admin: 09/19/21 20:41 Dose: 10 mg Documented by: Aspirin (Aspirin 81 Mg Tab.Chew) 81 mg PO BEDTIME DAVID Last Admin: 09/19/21 20:39 Dose: 81 mg Documented by: Atorvastatin Calcium (Atorvastatin 10 Mg Tab) 10 mg PO BEDTIME DAVID Last Admin: 09/19/21 20:40 Dose: 10 mg Documented by: Budesonide (Budesonide 0.5 Mg/2 Ml Neb Susp) 0.5 mg NEB BIDRT DAVID Last Admin: 09/19/21 18:24 Dose: 0.5 mg Documented by: Dextrose/Water (50% Dextrose In Water 50 Ml Syringe) 25 ml IVPUSH ASDIRECTED PRN PRN Reason: Hypoglycemia BS<70 Docusate Sodium (Docusate Sodium 100 Mg Cap) 100 mg PO BID PRN PRN Reason: Constipation Enoxaparin Sodium (Enoxaparin 40 Mg/0.4 Ml Syringe) 40 mg SUBCUT DAILY [facility] Last Admin: 09/19/21 10:25 Dose: 40 mg Documented by: Escitalopram Oxalate (Escitalopram 10 Mg Tab) 20 mg PO BEDTIME [facility] Last Admin: 09/19/21 20:39 Dose: 20 mg Documented by: Hydrochlorothiazide (Hydrochlorothiazide 25 Mg Tab) 12.5 mg PO DAILY [facility] Last Admin: 09/19/21 10:10 Dose: 12.5 mg Documented by: Azithromycin 500 mg/ Sodium (Chloride) 250 mls @ 250 mls/hr IV Q24H [facility] Last Admin: 09/19/21 15:58 Dose: 250 mls/hr Documented by: Insulin Human Lispro (Insulin Lispro 100 Units/Ml 3 Ml Vial) 0 unit SUBCUT WITHMEALSANDBED [facility]; Protocol Last Admin: 09/19/21 20:40 Dose: 2 units Documented by: Losartan Potassium (Losartan 50 Mg Tab) 50 mg PO DAILY [facility] Last Admin: 09/19/21 10:11 Dose: 50 mg Documented by: Methylprednisolone Sodium Succinate (Methylprednisolone Sodium Succinate 40 Mg/1 Ml Sdv) 40 mg IVPUSH Q8H [facility] Last Admin: 09/20/21 01:05 Dose: 40 mg Documented by: Metoprolol Succinate (Metoprolol Succinate 25 Mg Tab.Er) 25 mg PO DAILY [facility] Last Admin: 09/19/21 10:26 Dose: 25 mg Documented by: Multivitamins/Minerals/Vitamin C (Multivitamin Tab) 1 tab PO DAILY [facility] Last Admin: 09/19/21 10:11 Dose: 1 tab Documented by: Ondansetron HCl (Ondansetron 4 Mg Tab.Dis) 4 mg PO Q6H PRN PRN Reason: nausea, able to take PO Oxycodone HCl (Oxycodone 5 Mg Tab) 5 mg PO Q4H PRN PRN Reason: Pain (moderate 4-6) Sodium Chloride (Sodium Chloride 0.9% 10 Ml Syringe) 10 ml FLUSH ASDIRECTED PRN PRN Reason: Keep Vein Open Last Admin: 09/18/21 15:29 Dose: 10 ml Documented by: Discontinued Medications Albuterol (Albuterol 0.083% 2.5 Mg/3 Ml Neb Soln) 10 mg NEB ONETIME ONE Stop: 09/18/21 09:45 Last Admin: 09/18/21 09:55 Dose: 10 mg Documented by: Albuterol (Albuterol 0.083% 2.5 Mg/3 Ml Neb Soln) Confirm Administered Dose 10 mg .ROUTE .STK-MED ONE Stop: 09/18/21 09:48 Last Admin: 09/18/21 10:48 Dose: Not Given Documented by: Albuterol (Albuterol 0.083% 2.5 Mg/3 Ml Neb Soln) 10 mg NEB ONETIME ONE Stop: 09/18/21 12:24 Last Admin: 09/18/21 12:32 Dose: Not Given Documented by: Albuterol (Albuterol 0.083% 2.5 Mg/3 Ml Neb Soln) Confirm Administered Dose 10 mg .ROUTE .STK-MED ONE Stop: 09/18/21 12:27 Last Admin: 09/18/21 12:32 Dose: 10 mg Documented by: Albuterol/Ipratropium (Albuterol/Ipratropium 3.0-0.5 Mg/3 Ml Neb Soln) Confirm Administered Dose 6 ml .ROUTE .STK-MED ONE Stop: 09/18/21 09:33 Last Admin: 09/18/21 09:36 Dose: 6 ml Documented by: Magnesium Sulfate 2 gm/ Premix 50 mls @ 25 mls/hr IV ONETIME ONE Stop: 09/18/21 12:13 Last Admin: 09/18/21 10:21 Dose: 25 mls/hr Documented by: Azithromycin 500 mg/ Sodium (Chloride) 250 mls @ 250 mls/hr IV Q24H DAVID Last Admin: 09/19/21 16:35 Dose: Not Given Documented by: Methylprednisolone Sodium Succinate (Methylprednisolone Sodium Succinate 125 Mg/2 Ml Sdv) 125 mg IVPUSH ONETIME ONE Stop: 09/18/21 10:22 Last Admin: 09/18/21 10:25 Dose: 125 mg Documented by: Potassium Chloride (Potassium Chloride 10 Meq Tab.Er) 40 meq PO TIDMEALS DAVID Stop: 09/19/21 17:01 Last Admin: 09/19/21 17:34 Dose: 40 meq Documented by: - Exam Quality Assessment: Denies: Supplemental Oxygen General: Reports: Alert, Oriented Neck: Reports: Supple Lungs: Reports: Normal Respiratory Effort, Wheezing (mild b/l) Cardiovascular: Reports: Regular Rate, Regular Rhythm GI/Abdominal Exam: Normal Bowel Sounds, Soft, Non-Tender Extremities: No Pedal Edema
[2021-09-20] MEDS: Insulin Lispro 100 Units/ML 3 ML Vial SUBCUT SCH ×2 (09:30→12:06)
[2021-09-20] MEDS: Hydrochlorothiazide 25 MG Tab PO SCH (09:33)
[2021-09-20] MEDS: Losartan 50 MG Tab PO SCH (09:34)
[2021-09-20] MEDS: Metoprolol Succinate 25 MG Tab.ER PO SCH (09:34)
[2021-09-20] MEDS: Enoxaparin 40 MG/0.4 ML Syringe SUBCUT SCH (09:35)
[2021-09-20] MEDS: Multivitamin Tab PO SCH (09:36)
[2021-09-20] MEDS ORDERED: Albuterol/Ipratropium 3.0-0.5 MG/3 ML Neb Soln ONE (09:54)
[2021-09-20] MEDS ORDERED: Budesonide 0.5 MG/2 ML Neb Susp ONE (09:54)
[2021-09-20] MEDS: Budesonide 0.5 MG/2 ML Neb Susp NEB SCH (10:02)
== END 2021-09-20 13:30 | disposition home or self-care (01) | DRG 189 ==
LOC: DL.ED 09:08 → DL.MS 12:44
PROVIDERS: ADMIT Internal Medicine; ATTEND Internal Medicine
DX: J45.41 Moderate persistent asthma with (acute) exacerbation (principal); J96.01 Acute respiratory failure with hypoxia; J44.1 Chronic obstructive pulmonary disease with (acute) exacerbation; J44.0 Chronic obstructive pulmonary disease with (acute) lower respiratory infection; J20.9 Acute bronchitis, unspecified; Z92.3 Personal history of irradiation; I25.10 Atherosclerotic heart disease of native coronary artery without angina pectoris; I10 Essential (primary) hypertension; E11.9 Type 2 diabetes mellitus without complications; F39 Unspecified mood [affective] disorder; H54.7 Unspecified visual loss; M19.90 Unspecified osteoarthritis, unspecified site; Z20.822 Contact with and (suspected) exposure to COVID-19; F32.A Depression, unspecified; E66.9 Obesity, unspecified; F17.210 Nicotine dependence, cigarettes, uncomplicated; Z85.72 Personal history of non-Hodgkin lymphomas; Z79.82 Long term (current) use of aspirin; Z79.899 Other long term (current) drug therapy; Z79.84 Long term (current) use of oral hypoglycemic drugs; Z79.52 Long term (current) use of systemic steroids; Z95.5 Presence of coronary angioplasty implant and graft; Z86.010 Personal history of colon polyps; Z88.0 Allergy status to penicillin
CPT/HCPCS: 0240U; 36415; 71045; 80048; 80053; 82947; 83735; 83880; 84100; 84484; 85025; 86140; 93005; 94640; 96365; 96366; 96375; 99285; A9270-GY; J0456; J1650; J1815-GY; J2920; J2930; J3475; J7050; J7613-GY; J7620-GY